=== PATIENT | male | born 1975 | race American Indian/Alaskan Native ===

== ENCOUNTER 2017-01-22 14:38 | Emergency (ER) | payer SELFPAY ==
[2017-01-22 15:25] VITALS: BP 136/79
[2017-01-22 16:00] LABS: Basophils % (Auto) 0.5 % (0.0-1.8); Eosinophils % (Auto) 1.4 % (0.0-4.3); Hematocrit 42.3 % (35.5-45.6); Hemoglobin 13.8 gm/dl (11.8-15.2); Mean Corpuscular HGB Conc 33 % (32-34); Mean Corpuscular Hemoglobin 29 pg (28-32); Mean Corpuscular Volume 89 fl (84-94); Platelet Count 273 K/mm3 (140-440); Red Blood Count 4.76 M/mm3 (3.65-5.03); Red Cell Distribution Width 12.6 % (13.2-15.2); White Blood Count 7.1 K/mm3 (4.5-11.0)
[2017-01-22 16:23] LABS: Anion Gap 16 mmol/L; Blood Urea Nitrogen 11 mg/dL (9-20); Calcium 9.2 mg/dL (8.4-10.2); Carbon Dioxide 27 mmol/L (22-30); Chloride 105.1 mmol/L (98-107); Glucose 108 mg/dL (75-100); Potassium 3.6 mmol/L (3.6-5.0); Sodium 144 mmol/L (137-145)
[2017-01-22 16:25] LABS: Creatine Kinase MB 2.7 ng/mL (0.0-4.0)
[2017-01-22 16:26] LABS: Creatine Kinase 273 units/L (55-170)
== END 2017-01-22 16:00 | disposition left against medical advice (07) ==
LOC: ED 14:38
DX: R03.0 Elevated blood-pressure reading, without diagnosis of hypertension (principal); Z53.21 Procedure and treatment not carried out due to patient leaving prior to being seen by health care provider
CPT/HCPCS: 36415; 80048; 82550; 82553; 84484; 85025; 93005; 93010

== ENCOUNTER 2017-06-08 02:36 | Emergency (ER) | payer SELFPAY ==
[2017-06-08] MEDS ORDERED: DELTASONE PO ONE (05:36)
[2017-06-08] MEDS ORDERED: DELTASONE ONE ×2 (05:36)
--- NOTE | 2017-06-08 08:11 | XRay Report ---
XRAY CHEST TWO VIEWS: 06/08/17 02:36:00 CLINICAL: Wheezing and difficulty breathing. COMPARISON: None FINDINGS: Normal heart and pulmonary vasculature. The lungs are normally expanded and clear.The bones and soft tissues are unremarkable. IMPRESSION: Normal chest.
[2017-06-08 11:00] LABS: Alanine Aminotransferase 18 units/L (7-56); Albumin 4.2 g/dL (3.9-5); Albumin/Globulin Ratio 1.9 %; Alkaline Phosphatase 92 units/L (35-129); Anion Gap 17 mmol/L; BUN/Creatinine Ratio 15; Blood Urea Nitrogen 12 mg/dL (9-20); Carbon Dioxide 30 mmol/L (22-30); Creatine Kinase 438 units/L (55-170); Creatine Kinase MB 8.5 ng/mL (0.0-4.0); Glucose 87 mg/dL (75-100); Potassium 4.5 mmol/L (3.6-5.0); Sodium 146 mmol/L (137-145); Total Protein 6.4 g/dL (6.3-8.2)
[2017-06-08 11:35] LABS: INR 0.96 (0.87-1.13); Partial Thromboplastin Time 32.9 Sec. (24.2-36.6)
--- NOTE | 2017-06-08 12:18 | Emergency Department Report ---
HPI - General Chief Complaint: Dyspnea/Respdistress Time Seen by Provider: 06/08/17 12:01 - [facility] HPI: Patient is a 41-year-old male who states he has past medical history of hypertension and diabetes but does not remember what medication he was on some number to seek his primary care while she has not been on medication for either. He presents to ED today complaining of chest tightness and mild dyspnea that started yesterday. Patient states he has no history of asthma but had some intermittent coughing a generalized body aches. He denies fevers/chills/nausea/vomiting/abdominal pain/chest pain/dizziness. ED Past Medical Hx - Past Medical History Hx Hypertension: Yes Hx Diabetes: Yes - Social History Smoking Status: Current Every Day Smoker Substance Use Type: Marijuana - Medications Home Medications: Home Medications Medication Instructions Recorded Confirmed Last Taken Type ALBUTEROL Inhaler [ProAir HFA 2 puff IH QID PRN #1 pump 06/08/17 Unknown Rx Inhaler] Cyclobenzaprine [Flexeril] 10 mg PO TID PRN #20 tablet 06/08/17 Unknown Rx D-Methorphan/PE/Acetaminophen 1 each PO TID #30 tablet 06/08/17 Unknown Rx [Tylenol Cold Multi-Symp Caplet] Ibuprofen [Motrin 800 MG tab] 800 mg PO Q8H #30 tablet 06/08/17 Unknown Rx Sulfamethoxazole/Trimethoprim 1 each PO BID #14 tablet 06/08/17 Unknown Rx [Bactrim DS TAB] ED Review of Systems ROS: Stated complaint: Other details as noted in HPI Constitutional: denies: chills, fever Eyes: denies: eye pain, eye discharge, vision change ENT: denies: ear pain, throat pain Respiratory: denies: cough, shortness of breath, wheezing Cardiovascular: denies: chest pain, palpitations Endocrine: no symptoms reported Gastrointestinal: denies: abdominal pain, nausea, diarrhea Genitourinary: denies: urgency, dysuria Musculoskeletal: denies: back pain, joint swelling, arthralgia Skin: denies: rash, lesions Neurological: denies: headache, weakness, paresthesias Psychiatric: denies: anxiety, depression Hematological/Lymphatic: denies: easy bleeding, easy bruising Physical Exam - Physical Exam Vital Signs: Vital Signs 06/08/17 10:29 Temperature 98.4 F Pulse Rate 78 Respiratory 18 Rate Blood Pressure 131/79 Physical Exam: GENERAL: Alert and oriented x3, no apparent distress, Normal Gait, atraumatic. HEAD: Head is normocephalic and a-traumatic. EYES: Extra ocular muscles are intact. Pupils are equal, round, and reactive to light and accommodation. EARS: symetrical, atraumatic, non tender, ear canal clear and moderate cerumen, tympanic membrance non inflamed. gross auditory nml bilaterally. NOSE: Nose symetrical, Nontender,Nares appeared normal. MOUTH:Mouth is well hydrated and without lesions. Tonsils nonerythematous or swollen, Uvula midline, Tongue not elevated. Mucous membranes are moist. Posterior pharynx clear, no exudate or lesions. Patent airways. NECK: Supple. Non edematous, No lymphadenopathy or thyromegaly. LUNGS: Symetrical with respiration, mild wheezing lower lungs bilaterally, no rales or crackles HEART: S1, S2 present, regular rate and rhythm without murmur, no rubs, no gallops. Non tender to palpation ABDOMEN: No organomegaly was noted,Positive bowel sounds, soft, and non- distended. . Nontender to palpation on all Quadrants, NO CVA tenderness. BACK: Full range of motion, no spinal tenderness, nontender to palpation. NEUROLOGIC: The patient is cooperative with no focal neurologic deficits. Normal speech. Normal sensation in bilateral upper and lower extremities, No loss of sensation, . SKIN: Warm and dry, No lesions, No ulceration or induration present. ED Course Vital Signs 06/08/17 10:29 Temperature 98.4 F Pulse Rate 78 Respiratory 18 Rate Blood Pressure 131/79 ED Medical Decision Making - Lab Data Result diagrams: 06/08/17 05:04 Laboratory Last Values PT 13.3 Sec. (12.2-14.9) 06/08/17 05:04 INR 0.96 (0.87-1.13) 06/08/17 05:04 APTT 32.9 Sec. (24.2-36.6) 06/08/17 05:04 Sodium 146 mmol/L (137-145) H 06/08/17 05:04 Potassium 4.5 mmol/L (3.6-5.0) 06/08/17 05:04 Chloride 104.0 mmol/L (98-107) 06/08/17 05:04 Carbon Dioxide 30 mmol/L (22-30) 06/08/17 05:04 Anion Gap 17 mmol/L 06/08/17 05:04 BUN 12 mg/dL (9-20) 06/08/17 05:04 Creatinine 0.8 mg/dL (0.8-1.5) 06/08/17 05:04 Estimated GFR > 60 ml/min 06/08/17 05:04 BUN/Creatinine Ratio 15 % 06/08/17 05:04 Glucose 87 mg/dL (75-100) 06/08/17 05:04 Calcium 9.0 mg/dL (8.4-10.2) 06/08/17 05:04 Total Bilirubin 0.30 mg/dL (0.1-1.2) 06/08/17 05:04 AST 25 units/L (5-40) 06/08/17 05:04 ALT 18 units/L (7-56) 06/08/17 05:04 Alkaline Phosphatase 92 units/L (35-129) 06/08/17 05:04 Total Creatine Kinase 438 units/L (55-170) H 06/08/17 05:04 CK-MB (CK-2) 8.5 ng/mL (0.0-4.0) H 06/08/17 05:04 Troponin T < 0.010 ng/mL (0.00-0.029) 06/08/17 14:42 NT-Pro-B Natriuret Pep 20.98 pg/mL (0-450) 06/08/17 05:04 Total Protein 6.4 g/dL (6.3-8.2) 06/08/17 05:04 Albumin 4.2 g/dL (3.9-5) 06/08/17 05:04 Albumin/Globulin Ratio 1.9 % 06/08/17 05:04 Urine Color Yellow (Yellow) 06/08/17 13:11 Urine Turbidity Clear (Clear) 06/08/17 13:11 Urine pH 7.0 (5.0-7.0) 06/08/17 13:11 Ur Specific [employer] 1.015 (1.003-1.030) 06/08/17 13:11 Urine Protein <15 mg/dl mg/dL (Negative) 06/08/17 13:11 Urine Glucose (UA) 150 mg/dL (Negative) 06/08/17 13:11 Urine Ketones Neg mg/dL (Negative) 06/08/17 13:11 Urine Blood Neg (Negative) 06/08/17 13:11 Urine Nitrite Neg (Negative) 06/08/17 13:11 Urine Bilirubin Neg (Negative) 06/08/17 13:11 Urine Urobilinogen 2.0 mg/dL (<2.0) 06/08/17 13:11 Ur Leukocyte Esterase Neg (Negative) 06/08/17 13:11 Urine WBC (Auto) 1.0 /HPF (0.0-6.0) 06/08/17 13:11 Urine RBC (Auto) 2.0 /HPF (0.0-6.0) 06/08/17 13:11 - Radiology Data Radiology results: report reviewed, image reviewed Fluoro Time In Minutes: XRAY CHEST TWO VIEWS: 06/08/17 02:36:00 CLINICAL: Wheezing and difficulty breathing. COMPARISON: None FINDINGS: Normal heart and pulmonary vasculature. The lungs are normally expanded and clear.The bones and soft tissues are unremarkable. IMPRESSION: Normal chest. Transcribed By: REF Dictated By: CHELSEY BENNETT MD Electronically Authenticated By: CHELSEY BENNETT MD Signed Date/Time: 06/08/17 0804 - Medical Decision Making 41-year-old male presents to ED with URI symptoms ED course: CBC, CMP, cooperation studies, EKG, chest x-ray, urinalysis ordered. Total creatinine kinase and CK-MB elevated, all of the labs negative. Troponin negative 2 . Patient denied any history of kidney disease Urinalysis , negative Discussed all of this findings with the patient. Patient is alert and oriented 3 he is neurologically intact he is in no acute or respiratory distress. Patient received an albuterol treatment, prednisone and pain medication in the ED. Due to patient being uncontrolled diabetic I will not be giving him steroids as discharge medication. I did cover the patient prophylactically with Bactrim DS I discussed this case with attending Dr. Murphy who recommended a second troponin and If troponin negative patient could be discharged. I discussed with patient to follow up with the primary care physician to manage his diabetes and blood pressure. Patient received to respiratory treatment while in ED. Patient was satting 98% prior to discharge. I discussed the patient to make sure he use his inhaler as prescribed Discussed with the patient that if he has any worsening symptoms to return to the ED immediately Critical care attestation.: If time is entered above; I have spent that time in minutes in the direct care of this critically ill patient, excluding procedure time. ED Disposition Clinical Impression: Common cold Acute bronchitis Qualifiers: Bronchitis organism: other organism Qualified Code(s): J20.8 - Acute bronchitis due to other specified organisms Disposition: TO HOME OR SELFCARE Is pt being admited?: No Does the pt Need Aspirin: No Condition: Stable Instructions: Acute Bronchitis (ED), Cold Symptoms (ED) Additional Instructions: Follow-up with primary care physician for continued management fever blood pressure and diabetes. If any worsening symptoms he can return to the ED. Take medication as prescribed Prescriptions: ALBUTEROL Inhaler [ProAir HFA Inhaler] 2 puff IH QID PRN #1 pump PRN Reason: Shortness Of Breath Cyclobenzaprine [Flexeril] 10 mg PO TID PRN #20 tablet PRN Reason: Muscle Spasm D-Methorphan/PE/Acetaminophen [Tylenol Cold Multi-Symp Caplet] 1 each PO TID # 30 tablet Ibuprofen [Motrin 800 MG tab] 800 mg PO Q8H #30 tablet Sulfamethoxazole/Trimethoprim [Bactrim DS TAB] 1 each PO BID #14 tablet Referrals: PRIMARY CARE, [Primary Care Provider] - 3-[address] [facility] [Outside] - 3-5 Days [facility] [Outside] - 3-5 Days [facility] [Outside] - 3-5 Days Forms: Accompanied Note, Work/School Release Form(ED) Time of Disposition: 13:58
[2017-06-08] MEDS ORDERED: DUONEB *Not for PRN Use IH ONE (12:38)
[2017-06-08 13:20] LABS: Bilirubin,Urine NEG (Negative); Blood,Urine NEG (Negative); Ketones,Urine NEG (Negative); Leukocyte Esterase,Urine NEG (Negative); Nitrite,Urine NEG (Negative); Protein,Urine <15 mg/dL mg/dL (Negative)
[2017-06-08 13:36] VITALS: BP 152/80
[2017-06-08] MEDS ORDERED: PROVENTIL IH ONE (15:43)
[2017-06-08] MEDS ORDERED: MOTRIN PO ONE (15:44)
== END 2017-06-08 16:13 | disposition home or self-care (01) ==
LOC: ED 02:36
DX: J20.8 Acute bronchitis due to other specified organisms (principal); J00 Acute nasopharyngitis [common cold]; E11.9 Type 2 diabetes mellitus without complications; I10 Essential (primary) hypertension; F17.200 Nicotine dependence, unspecified, uncomplicated; F12.10 Cannabis abuse, uncomplicated
CPT/HCPCS: 36415; 71020; 80053; 81001; 82550; 82553; 83880; 84484; 85610; 85730; 93005; 93010; 94640; 99284; J7512